=== PATIENT | male | born 1955 | race Caucasian/White ===

== ENCOUNTER → 2017-11-03 | Outpatient (CLI) | payer BC ==
[~2017-11-03] MED LIST: ASPIRIN E.C. 8181 MG PO; GEMCOR600 MG PO; SIMVASTATIN40 MG PO
== END ==
LOC: COL.VAS 13:08
DX: I36.1 Nonrheumatic tricuspid (valve) insufficiency (principal); I31.3 Pericardial effusion (noninflammatory)

== ENCOUNTER 2017-12-03 11:44 | Day surgery (SDC) | payer BC ==
[~2017-12-03] VITALS: Ht 175.4 cm; Wt 95.0 kg
[2017-12-03] VITALS (7 sets, daily range): BP systolic 106–126; BP diastolic 78–91; PULSE 77–140; TEMP 97–97.5
[2017-12-03] MEDS ORDERED: ELIQUIS 5MG PO (12:06)
[2017-12-03] MEDS ORDERED: TOPROL XL 50MG50 MG PO (12:06)
[2017-12-03] MEDS ORDERED: ASPIRIN E.C. 8181 MG PO (12:07)
[2017-12-03 12:27] LABS: MEAN CELL VOLUME 88 fl (80.0-100.0); MEAN CORPUSCULAR HEMOGLOBIN 29 pg (27.0-31.0); MEAN CORPUSCULAR HGB CONC 33 g/dl (33.0-37.0); MEAN PLATELET VOLUME 9.6 fl (7.4-10.4); PLATELET COUNT 208 K/mm3 (130-400); RED BLOOD COUNT 4.77 M/mm3 (4.20-5.60); REDCELL DISTRIBUTION WIDTH-CV 13.9 % (11.5-14.5)
[2017-12-03 12:31] LABS: INR 1.1 (0.8-3.0); PROTHROMBIN TIME 12.5 SECONDS (9.7-12.8)
[2017-12-03 12:39] LABS: CALCIUM 8.9 mg/dL (8.4-10.2); CREATININE, serum 1.04 mg/dL (0.66-1.25); POTASSIUM 4.4 mmol/L (3.4-5.0)
[2017-12-03 13:09] LABS: THYROID STIMULATING HORMONE 2.86 uIU/mL (0.465-4.680)
[2017-12-03] MEDS ORDERED: MULTAQ400 MG PO (14:23)
== END 2017-12-03 16:27 | disposition home or self-care (01) ==
LOC: COL.CAR 11:44
PROVIDERS: Internal Medicine Cardiovascular Disease
DX: I48.92 Unspecified atrial flutter (principal); I31.3 Pericardial effusion (noninflammatory); R60.0 Localized edema; Z82.49 Family history of ischemic heart disease and other diseases of the circulatory system; Z80.9 Family history of malignant neoplasm, unspecified; E78.2 Mixed hyperlipidemia; Z79.01 Long term (current) use of anticoagulants; Z79.82 Long term (current) use of aspirin; Z79.899 Other long term (current) drug therapy
CPT/HCPCS: J1650; J2250; J3010